=== PATIENT | female | born 1965 | race Caucasian/White ===

== ENCOUNTER 2017-05-23 11:45 | Outpatient (CLI) | payer BC ==
--- NOTE | 2017-05-23 12:36 | RAD ---
TWO VIEWS OF THE LEFT CALCANEUS COMPARISON: None. HISTORY: Pain in the heel. FINDINGS: Two views of the left calcaneus show no evidence of acute fracture or dislocation. There are very sm all posterior and plantar calcaneal enthesophytes. IMPRESSION: Small calcaneal enthesophytes without acute osseous abnormality. POS: [facility]
== END 2017-05-23 11:46 | disposition home or self-care (01) ==
LOC: MADRAD 11:45
PROVIDERS: ATTEND Obstetrics & Gynecology
DX: M79.672 Pain in left foot (principal)